=== PATIENT | female | born 1985 | race Two or more races ===

== ENCOUNTER → 2019-07-15 | Outpatient (CLI) | payer MEDICAID ==
--- NOTE | 2019-07-15 11:00 | RADIOLOGY REPORT (SQ) ---
EXAM DESCRIPTION: U/S OB 14+ TRNABD 1GES W/O DOP COMPLETED DATE/TIME: 07/15/2019 10:51 am REASON FOR STUDY: Z34.82 ENCOUNTER FOR SUPRVSN OF NORMAL , SECOND TRIMESTER Z34.82 ENCOUNT ER FOR SUPRVSN OF NORMAL , SECOND TRI COMPARISON: None. TECHNIQUE: Static and Dynamic grayscale imaging performed of gravid uterus using transabdominal appr oach. Additional selected color Doppler and spectral images recorded. All stored on PACS. LIMITATIONS: None. FINDINGS: FETUSES SEEN:1 EGA: 17 week 0 days. Calculated using BPD,FL,HC,AC documented on images. No discrepancy with clinica l dates. BAILEY: 12/23/2019 EFW: Not applicable. PERCENTILE: Not applicable. LVP: 3.5 cm. PLACENTA: Posterior in location. GRADE: I PRESENTATION: Variable. ANATOMY: HEART RATE: 139 beats per minute. FOUR CHAMBER HEART: Visualized. THREE VESSEL CORD: Yes. CORD INSERTION: Visualized. KIDNEYS AND BLADDER: Visualized. Appear normal. STOMACH: Visualized. Appears normal. SPINE: Normal as visualized. BRAIN AND LATERAL VENTRICLES: Visualized. Appear normal. OTHER: No other significant finding. MATERNAL ADNEXA: Ovaries are unremarkable. There is a dominant follicle on the left. CERVICAL LENGTH: 3.8 cm. Closed. OTHER: No other significant finding. IMPRESSION: LIVING INTRAUTERINE . ESTIMATED GESTATIONAL AGE 17 WEEKS 0 DAYS. NO VISUALIZED ANOMALIES. Trimester of : Second trimester - 13 weeks 1 day to 27 weeks 6 days. TECHNICAL DOCUMENTATION: JOB ID: [id number] [employer]- All Rights Reserved Reading location - IP/workstation name: [email or web address]
== END ==
LOC: RAD 10:04
PROVIDERS: ATTEND Midwife
DX: Z34.82 Encounter for supervision of other normal pregnancy, second trimester (principal); Z3A.17 17 weeks gestation of pregnancy
CPT/HCPCS: 76805

== ENCOUNTER → 2019-09-15 | Outpatient (CLI) | payer MEDICAID ==
--- NOTE | 2019-09-15 16:53 | RADIOLOGY REPORT (SQ) ---
EXAM DESCRIPTION: U/S OB 14+ TRNABD 1GES W/O DOP COMPLETED DATE/TIME: 09/15/2019 3:58 pm REASON FOR STUDY: Z34.82 ENCOUNTER FOR SUPRVSN OF NORMAL , SECOND TRIMESTER Z34.82 ENCOUNT ER FOR SUPRVSN OF NORMAL , SECOND TRI COMPARISON: 07/15/2019 TECHNIQUE: Static and Dynamic grayscale imaging performed of gravid uterus using transabdominal appr oach. Additional selected color Doppler and spectral images recorded. All stored on PACS. LIMITATIONS: None. FINDINGS: FETUSES SEEN:1 EGA: 25 weeks 1 day Calculated using BPD,FL,HC,AC documented on images. No discrepancy with clinical dates. BAILEY: 12/28/2019 EFW: 770+/- 114 grams PERCENTILE: 36th DANE: 9.6 cm. PLACENTA: Posterior. GRADE: I PRESENTATION: Cephalic. ANATOMY: HEART RATE: 131 beats per minute. FOUR CHAMBER HEART: Visualized. THREE VESSEL CORD: Yes. CORD INSERTION: Visualized. KIDNEYS AND BLADDER: Visualized. Appear normal. STOMACH: Visualized. Appears normal. SPINE: Normal as visualized. BRAIN AND LATERAL VENTRICLES: Visualized. Appear normal. OTHER: No other significant finding. MATERNAL ADNEXA: Maternal ovaries not visualized. CERVICAL LENGTH: 2.5 cm. Closed. OTHER: No other significant finding. IMPRESSION: LIVING INTRAUTERINE . ESTIMATED GESTATIONAL AGE 25 weeks 1 day. NO VISUALIZED ANOMALIES. Trimester of : Second trimester - 13 weeks 1 day to 27 weeks 6 days. TECHNICAL DOCUMENTATION: JOB ID: [id number] 2010 [employer]- All Rights Reserved Reading location - IP/workstation name: [email or web address]
== END ==
LOC: RAD 14:51
PROVIDERS: ATTEND Midwife
DX: Z34.82 Encounter for supervision of other normal pregnancy, second trimester (principal); Z3A.25 25 weeks gestation of pregnancy
CPT/HCPCS: 76805

== ENCOUNTER 2019-12-29 18:47 | Outpatient (CLI) | payer MEDICAID ==
--- NOTE | 2019-12-29 20:52 | Non Stress Test Report ---
Non Stress Test Datetime Report Generated by CPN: 12/29/2019 20:51 INDICATION Indication for Study (NST) Other: Repeat NST- sent from office VITAL SIGNS Pulse - NST: 68 NBPSYS NST: 114 NBPDIA NST: 62 MONITORING Monitor Explained: Monitor Explained; Test Explained; Patient Verbalized Understanding Time on Monitor: 12/29/2019 18:58 Time off Monitor: 12/29/2019 20:36 NST Duration: 98 NST INTERVENTIONS NST Interventions: PO Hydration; Reposition Patient Physician Notified NST: Dr. Durand BABY A: [id number] BABY A Movement : Present Contraction Frequency : rare FHR Baseline : 125 Accelerations : 15X15 Decelerations : None Variability : Moderate 6-25bpm NST Review: Meets Criteria for Reactive NST NST Review and Verified By : Otf [place] RN NST Results: Reactive NST REPORT Report Trigger: Send Report
== END 2019-12-29 20:54 | disposition home or self-care (01) ==
LOC: LC 18:47
PROVIDERS: ATTEND Obstetrics & Gynecology Gynecology
DX: O48.0 Post-term pregnancy (principal); Z3A.40 40 weeks gestation of pregnancy
CPT/HCPCS: 59025

== ENCOUNTER 2019-12-30 22:58 | Inpatient (IN) | payer MEDICAID ==
[2019-12-30] MEDS ORDERED: RINGERS SOLUTION,LACTATED 1,000 ML IV PRN (23:28)
[2019-12-30] MEDS ORDERED: RINGERS SOLUTION,LACTATED 1,000 ML IV ONE (23:28)
[2019-12-30 23:57] LABS: ABSOLUTE EOSINOPHILS # (AUTO) 0.1 10^3/uL (0.0-0.6); ABSOLUTE LYMPHOCYTES (AUTO) 2.3 10^3/uL (0.5-4.7); ABSOLUTE MONOCYTES (AUTO) 0.6 10^3/uL (0.1-1.4); ABSOLUTE NEUT (AUTO) 5.4 10^3/uL (1.7-8.2); BASOPHILS % (AUTO) 0.3 % (0-2); HEMATOCRIT 31.9 % (36.0-47.0); HEMOGLOBIN 10.3 g/dL (12.0-15.5); LYMPHOCYTES % (AUTO) 27.6 % (13-45); MEAN CORPUSCULAR HGB CONC 32.2 g/dL (32.0-36.0); MEAN CORPUSCULAR VOLUME 81 fl (80-97); MONOCYTES % (AUTO) 6.8 % (3-13); PLATELET COUNT 233 10^3/uL (150-450); RED BLOOD COUNT 3.96 10^6/uL (3.72-5.28); RED CELL DISTRIBUTION WIDTH 19.7 % (11.5-14.0); SEGMENTED NEUTROPHILS % (AUTO) 64.3 % (42-78); TOTAL CELLS COUNTED % (AUTO) 100 %; WHITE BLOOD COUNT 8.4 10^3/uL (4.0-10.5)
[2019-12-31] LABS: APPEARANCE,URINE CLEAR; BILIRUBIN,URINE NEGATIVE (NEGATIVE); COLOR,URINE STRAW; GLUCOSE, URINE NEGATIVE (NEGATIVE); KETONES,URINE NEGATIVE (NEGATIVE); LEUKOCYTE ESTERASE,URINE NEGATIVE (NEGATIVE); NITRITE,URINE NEGATIVE (NEGATIVE); PROTEIN,URINE NEGATIVE (NEGATIVE); URINE SPECIFIC GRAVITY 1.006; UROBILINOGEN,URINE NEGATIVE mg/dL (<2.0)
--- NOTE | 2019-12-31 00:15 | Admission Physical ---
Datetime Report Generated by CPN: 12/31/2019 00:15 CURRENT ADMISSION Chief Complaint: Uterine Contractions Indication for Induction: Not Applicable Admit Impression : Active Labor Admit Plan: Admit to Unit ALLERGIES Medication Allergies: No Medication Allergies: No Known Allergies (12/29/2019) Latex: No Latex Allergies Food Allergies: NKA Environmental Allergies: NKA OBSTETRICAL HISTORY EDC: 12/23/2019 00:00 : 4 Para: 3 Term: 3 : 0 SAB: 0 IAB: 0 Livin Gestational Diabetes: No Rh Sensitization: No Incompetent Cervix: No LIU: No Infertility: No ART Treatment: No Uterine Anomaly: No IUGR: No Hx Previous C/S: No Macrosomia: No Hx Loss/Stillborn: No PIH: No Hx : No Placenta Previa/Abruption: No Depression/PP Depression: No PTL/PROM: No Post Hemorrhage: No Current Procedures: Ultrasound; NST SEE RECORDS Alcohol: No Marijuana : No Cocaine: No Other Illicit Drugs: No Cigarettes: Never Smoker. [id number] MEDICAL HISTORY Diabetes: No Blood Transfusion: No Pulmonary Disease (Asthma, TB): No Breast Disease: No Hypertension: No Business Job Titles Surgery: No Heart Disease: No Hosp/Surgery: Yes Autoimmune Disorder: No Anesthetic Complications: No Kidney Disease: No Abnormal Pap Smear: No Neuro/Epilepsy: No Psychiatric Disorders: No Other Medical Diseases: No Hepatitis/Liver Disease: No Significant Family History: No Varicosities/Phlebitis: No Trauma/Violence : No Thyroid Dysfunction: No Medical History Comments: Hx with hospitalization for childrens deliveries INFECTIOUS HISTORY Gonorrhea: No Genital Herpes: No Chlamydia: No Tuberculosis: No Syphilis: No Hepatitis: No HIV/AIDS Exposure: No Rash or Viral Illness: No HPV: No PHYSICAL EXAM General: Normal HEENT: Normal Neurologic: Normal Thyroid: Normal Heart: Normal Lungs: Normal Breast: Deferred Back: Normal Abdomen: Normal Genitourinary Exam: Normal Extremities: Normal DTRs: Normal Pelvic Type: Adequate Vital Signs: Reviewed VAGINAL EXAM Dilatation: 6 Effacement: 90 Station: -2 MEMBRANES Pooling: Negative Membranes: Intact FETUS A EGA: 41.1 Monitoring: External US FHR- Baseline: 130 Variability: Moderate 6-25bpm Decelerations: None FHR Category: Category I Presentation: Vertex Admit Comment: Anticipate delivery. PLANS FOR LABOR AND DELIVERY Labor and Delivery: None Pain Management: Epidural Feeding Preference: Breast Circumcision: No INFORMED CONSENT Signature: with User ID: [email or web address]
[2019-12-31 00:20] LABS: URINE AMPHETAMINES SCREEN NEGATIVE; URINE BARBITURATES SCREEN NEGATIVE; URINE BENZODIAZEPINES SCREEN NEGATIVE; URINE COCAINE SCREEN NEGATIVE; URINE MARIJUANA (THC) SCREEN NEGATIVE; URINE METHADONE SCREEN NEGATIVE; URINE PHENCYCLIDINE SCREEN NEGATIVE
[2019-12-31] MEDS ORDERED: OXYTOCIN 10 UNIT/ML VIAL ONE (00:22)
[2019-12-31] MEDS ORDERED: MISOPROSTOL 0.2 MG TABLET ONE (00:23)
[2019-12-31] MEDS ORDERED: OXYTOCIN/0.9 % SODIUM CHLORIDE 30 UNIT/500 ML RTUINJ ONE (00:23)
[2019-12-31] MEDS ORDERED: LIDOCAINE 1% INJ-PF (10 MG/ML) 30 ML SDV ONE (00:23)
[2019-12-31] MEDS ORDERED: PROMETHAZINE HCL INJ 25 MG/1 ML VIAL IV PRN (00:24)
[2019-12-31] MEDS ORDERED: PSEUDOEPHEDRINE HCL 30 MG TABLET PO PRN (00:24)
[2019-12-31] MEDS ORDERED: MEASLES,MUMPS&RUBELLA VACC/PF 0.5 ML VIAL SUBCUT PRN (00:24)
[2019-12-31] MEDS ORDERED: NA PHOS,M-B/NA PHOS,DI-BA (ADULT) 133 ML ENEMA PR PRN (00:24)
[2019-12-31] MEDS ORDERED: DIPHENHYDRAMINE HCL 25 MG CAPSULE PO PRN (00:24)
[2019-12-31] MEDS ORDERED: ACETAMINOPHEN 650 MG SUPP.RECT PR PRN (00:24)
[2019-12-31] MEDS ORDERED: DIBUCAINE 1% OINTMENT 28 GM TP PRN (00:24)
[2019-12-31] MEDS ORDERED: DIPH/PERTUSS(ACELL)/TETANUS VAC/PF 0.5 ML SYR (>=10YO) IM PRN (00:24)
[2019-12-31] MEDS ORDERED: BENZOCAINE/MENTHOL AEROSOL SPRAY 56 ML TOP PRN (00:24)
[2019-12-31] MEDS ORDERED: OXYTOCIN/0.9 % SODIUM CHLORIDE 30 UNIT/500 ML RTUINJ IV PRN (00:24)
[2019-12-31] MEDS ORDERED: ACETAMINOPHEN WITH CODEINE #3 TABLET PO PRN ×2 (00:24)
[2019-12-31] MEDS ORDERED: MAGNESIUM HYDROXIDE SUSP 30 ML UDCUP PO PRN (00:24)
[2019-12-31] MEDS ORDERED: GLYCERIN/WITCH HAZEL LEAF 1 EACH MED..WIPE TP PRN (00:24)
[2019-12-31] MEDS ORDERED: PROMETHAZINE HCL 25 MG TABLET PO PRN (00:24)
[2019-12-31] MEDS ORDERED: PROMETHAZINE HCL 25 MG SUPP.RECT PR PRN (00:24)
[2019-12-31] MEDS ORDERED: ZOLPIDEM TARTRATE 5 MG TABLET PO PRN (00:24)
[2019-12-31] MEDS ORDERED: FENTANYL/BUPIVACAINE/NS/PF 300 MCG/150 ML RTUINJ EPI ONE (00:48)
[2019-12-31] MEDS ORDERED: EPHEDRINE SULFATE INJ 50 MG/1 ML AMPULE ONE (00:48)
[2019-12-31] MEDS ORDERED: BUPIVACAINE HCL 0.25 % INJ/PF (2.5 MG/1 ML) 30 ML VIAL ONE (00:49)
--- NOTE | 2019-12-31 05:40 | Delivery Summary ---
Del Sum A-C Datetime Report Generated by CPN: 12/31/2019 05:40 DELIVERY PERSONNEL DELIVERY PERSONNEL: [id number] Delivery Doctor:: Torres Ingram MD Labor and Delivery Nurse:: Carmel Wade RNconservation technician Nurse:: EDUARDA Izquierdo Ncr Operator/QUALITY CONTROL: Alicia Ross, ST MATERNAL INFORMATION Delivery Anesthesia: Epidural Medications After Delivery: Pitocin Bolus-Please Comment Estimated Blood Loss (ml): 250 Delivery QBL: 250 Maternal Complications: None LABOR SUMMARY EDC: 12/23/2019 00:00 No. Babies in Womb: 1 Attempted: No Labor Anesthesia: Epidural LABOR INFORMATION Reason for Induction: Not Applicable Onset of Labor: 12/30/2019 23:25 Complete Dilatation: 12/31/2019 04:12 Oxytocin: N/A Group B Beta Strep: negative Antibiotics # of Doses: 0 Antibiotics Time of Last Dose: 0 Name of Antibiotic Given: 0 Steroids Given: None Reason Steroids Not Administered: Not Applicable MEMBRANES Membranes Rupture Method: Spontaneous Rupture of Membranes: 12/30/2019 06:00 Length of Rupture (hr): 22.75 Amniotic Fluid Color: Clear Amniotic Fluid Amount: Scant Amniotic Fluid Odor: Normal STAGES OF LABOR Stage 1 hr: 4 Stage 1 min: 47 Stage 2 hr: 0 Stage 2 min: 33 Stage 3 hr: 0 Stage 3 min: 4 Total Time in Labor hr: 5 Total Time in Labor min: 24 VAGINAL DELIVERY Laceration #1: Vaginal Laceration Extension #1: Third Degree, IIIa (Less than 50 percent ext anal sphincter thickness torn) Laceration #2: None Laceration Extension #2: N/A Laceration #3: None Laceration Extension #3: N/A Laceration Repair: Yes Laceration Repair Note: Repair of small partial third degree with 3-0 chromic suture. The anterior tear in the capsule of the External anal sphincter was repaired with a figure 8 3-0 chromic suture. The midline vagina was repaired with a running 3-0 chromic suture. The deep tissue of the perineum was repaired with interrupted 3-0 chromic suture. The skin was closed with a 3-0 subcuticular suture. Sponge Count Correct: Vaginal Sweep Performed Sharps Count Correct: Yes CSECTION DELIVERY Primary Indication: N/A Secondary Indication: N/A CSection Incidence: N/A Labor: N/A Elective: N/A CSection Incision: N/A BABY A INFORMATION Delivery Date/Time: 12/31/2019 04:45 Method of Delivery: Vaginal Nurse Controlled Delivery: No Born in Route : No : N/A Forceps: N/A Vacuum Extraction: N/A Shoulder Dystocia : No PRESENTATION/POSITION BABY A Presentation: Cephalic Cephalic Presentation: Vertex Vertex Position: Left Occipital Anterior Breech Presentation: N/A PLACENTA INFORMATION BABY A Placenta Delivery Time : 12/31/2019 04:49 Placenta Method of Delivery: Spontaneous Placenta Status: Delivered SCORES BABY A Heart Rate 1 min: >100 bpm Resp Effort 1 min: Good Cry Reflex Irritability 1 min: Cough or Sneeze or Pulls Away Muscle Tone 1 min: Active Motion Color 1 min: Body [place], Extremities Blue Resuscitation Effort 1 min: Tactile Stimulation SCORE 1 MIN: 9 Heart Rate 5 min: >100 bpm Resp Effort 5 min: Good Cry Reflex Irritability 5 min: Cough or Sneeze or Pulls Away Muscle Tone 5 min: Active Motion Color 5 min: Body [place], Extremities Blue SCORE 5 MIN: 9 INFANT INFORMATION BABY A Gestational Age at Delivery: 41.1 Gestational Status: Late Term- 41- 41.6 Weeks Infant Outcome : Liveborn Infant Condition : Stable Infant Sex: Male IDENTIFICATION BABY A Verification Date/Time: 12/31/2019 05:24 ID Band Number: [id number] Mother's Name Verified: Yes RN Verifying Infant: A. Mauro RN Additional Verifying Personnel: Kim Vasyl RN WEIGHT/LENGTH BABY A Birthweight (gm): 4269 Weight (lb): 9 Infant Weight (oz): 7 Infant Length (in): 21.75 Infant Length (cm): 55.25 CORD INFORMATION BABY A No. Cord Vessels: 3 Nuchal Cord : N/A Cord Blood Taken: Yes-For Eval (Mom's Blood Type - or O+) Infant Suction: None ASSESSMENT BABY A Complications: None Physical Findings at Delivery: Within Normal Limits Respirations: Appears Normal Skin to Skin: Yes Electric Motor And Generator Assembler/ALS Called : No Care By: D Bellavance RN Transferred To: Remains with Mother BABY B INFORMATION : N/A SIGNATURES Signature: with User ID: [email or web address]
[2019-12-31] MEDS ORDERED: IBUPROFEN 800 MG TABLET ONE (06:32)
[2019-12-31] MEDS: IBUPROFEN 800 MG TABLET PO SCH ×3 (06:33→23:18)
[2019-12-31] MEDS: FERROUS SULFATE 325 MG TABLET PO SCH ×2 (10:01→18:01)
[2019-12-31] MEDS: SENNOSIDES/DOCUSATE 8.6-50 MG 1 EACH TABLET PO SCH (10:01)
[2019-12-31] MEDS: FAMOTIDINE 20 MG TABLET PO SCH ×2 (10:01→23:17)
[2019-12-31] MEDS: PRENATAL VITAMIN W DHA CAPSULE PO SCH (10:01)
[2019-12-31] MEDS: DOCUSATE SODIUM 100 MG CAPSULE PO SCH ×2 (10:01→18:01)
--- NOTE | 2019-12-31 11:31 | PDOC PROGRESS REPORT ---
Subjective-OB Progress Note for:: 12/31/19 Subjective: 34yo s/p delivery day. Pt is ambulating and voiding without difficulty denies any concerns, reports pain well controlled with medication Physical Exam (OB) Vital Signs: Temp Pulse Resp BP Pulse Ox 97.6 F 59 L 16 130/77 H 100 12/31/19 08:11 12/31/19 08:11 12/31/19 08:11 12/31/19 08:11 12/31/19 08:11 Intake & Output 12/30/19 12/31/19 01/01/20 06:59 06:59 06:59 Intake Total 400 Balance 400 Weight 80.6 kg - General General Appearance: Appears well In distress: None - PIH/Pre-Eclampsia Headache: Absent Epigastric Pain: No Visual Changes: No - Episiotomy/Laceration Site Condition: Well Approximated, Edematous - Lochia Lochia Amount: Moderate 25-50 ml Lochia Color: Rubra/Red - Abdomen Description: Soft Hernia Present: No Fundal Description: Firm, Midline Fundal Height: 1/u - 2/u - Respiratory Respiratory Status: No respiratory distress - Extremities Upper extremity: Normal inspection Lower extremities: Normal inspection - Neurological Cognition: Normal Orientation: AAOx4 - Psychological Associated symptoms: Normal affect, Normal mood Objective-Diagnostic Laboratory: 12/30/19 23:42 12/30/19 12/30/19 12/30/19 23:08 23:42 23:42 WBC 8.4 RBC 3.96 Hgb 10.3 L Hct 31.9 L MCV 81 MCH 26.0 L MCHC 32.2 RDW 19.7 H Plt Count 233 Seg Neutrophils % 64.3 Urine Color STRAW Urine Appearance CLEAR Urine pH 6.0 Ur Specific [place] 1.006 Urine Protein NEGATIVE Urine Glucose (UA) NEGATIVE Urine Ketones NEGATIVE Urine Blood MODERATE H Urine Nitrite NEGATIVE Ur Leukocyte Esterase NEGATIVE Blood Type O POSITIVE Antibody Screen NEGATIVE Assessment and Plan(PN) - Assessment and Plan (1) Vaginal delivery Is this a current diagnosis for this admission?: Yes Plan: routine pp care (2) Third degree laceration of perineum, type 3a Is this a current diagnosis for this admission?: Yes Plan: continue to monitor for s/s of infection (3) Anemia affecting third Is this a current diagnosis for this admission?: Yes Plan: increase dietary iron and FeSO4 BID - Time Spent with Patient Time with patient: Less than 15 minutes Medications reviewed and adjusted accordingly: Yes - Disposition Anticipated Discharge: Home Within: within 48 hours
[2020-01-01] MEDS: IBUPROFEN 800 MG TABLET PO SCH ×3 (05:51→23:21)
[2020-01-01 08:10] LABS: HEMATOCRIT 29.7 % (36.0-47.0); HEMOGLOBIN 9.8 g/dL (12.0-15.5); MEAN CORPUSCULAR HEMOGLOBIN 26.5 pg (27.0-33.4); MEAN CORPUSCULAR HGB CONC 32.9 g/dL (32.0-36.0); MEAN CORPUSCULAR VOLUME 81 fl (80-97); PLATELET COUNT 200 10^3/uL (150-450); RED BLOOD COUNT 3.69 10^6/uL (3.72-5.28); RED CELL DISTRIBUTION WIDTH 20.6 % (11.5-14.0); WHITE BLOOD COUNT 8.1 10^3/uL (4.0-10.5)
[2020-01-01] MEDS: FAMOTIDINE 20 MG TABLET PO SCH ×2 (11:55→23:22)
[2020-01-01] MEDS: PRENATAL VITAMIN W DHA CAPSULE PO SCH (11:55)
[2020-01-01] MEDS: SENNOSIDES/DOCUSATE 8.6-50 MG 1 EACH TABLET PO SCH (11:55)
[2020-01-01] MEDS: FERROUS SULFATE 325 MG TABLET PO SCH ×2 (11:55→17:34)
[2020-01-01] MEDS: DOCUSATE SODIUM 100 MG CAPSULE PO SCH ×2 (11:56→17:34)
--- NOTE | 2020-01-01 14:16 | PDOC PROGRESS REPORT ---
Subjective-OB Progress Note for:: 01/01/20 - PP Day #1, doing well, UOB voiding, O+ , Rubella Immune, breast and bottlefeeding Physical Exam (OB) Vital Signs: Temp Pulse Resp BP Pulse Ox 98.0 F 58 L 16 109/55 L 99 01/01/20 08:00 01/01/20 08:00 01/01/20 08:00 01/01/20 08:00 01/01/20 08:00 Intake & Output 12/31/19 01/01/20 01/02/20 06:59 06:59 06:59 Intake Total 250 780 600 Output Total 200 Balance 50 780 600 Weight 80.6 kg - General General Appearance: Appears well, Alert - PIH/Pre-Eclampsia Clonus: Negative Headache: Absent Epigastric Pain: No Visual Changes: No - Lochia Lochia Amount: Scant < 10 ml Lochia Color: Rubra/Red - Abdomen Description: Soft Hernia Present: No Fundal Description: Firm, Midline Fundal Height: u/u - u/2 - Respiratory Respiratory Status: No respiratory distress - Genitourinary Genitourinary Note: voiding - Extremities Upper extremity: Normal inspection Lower extremities: Normal inspection - Neurological Cognition: Normal Orientation: AAOx4 - Psychological Associated symptoms: Normal affect, Normal mood Objective-Diagnostic Laboratory: 01/01/20 07:48 12/30/19 01/01/20 23:42 07:48 WBC 8.1 RBC 3.69 L Hgb 9.8 L Hct 29.7 L MCV 81 MCH 26.5 L MCHC 32.9 RDW 20.6 H Plt Count 200 Antibody Screen NEGATIVE Assessment and Plan(PN) - Assessment and Plan (1) Anemia affecting third Is this a current diagnosis for this admission?: Yes (2) Third degree laceration of perineum, type 3a Is this a current diagnosis for this admission?: Yes (3) Vaginal delivery Is this a current diagnosis for this admission?: Yes Plan:: Routine PP orders, ambulation encouraged - Time Spent with Patient Time with patient: Less than 15 minutes Medications reviewed and adjusted accordingly: Yes - Disposition Anticipated Discharge: Home Within: within 24 hours
[2020-01-02] MEDS: IBUPROFEN 800 MG TABLET PO SCH ×2 (06:10→13:29)
[2020-01-02] MEDS: PRENATAL VITAMIN W DHA CAPSULE PO SCH (09:40)
[2020-01-02] MEDS: FAMOTIDINE 20 MG TABLET PO SCH (09:40)
[2020-01-02] MEDS: SENNOSIDES/DOCUSATE 8.6-50 MG 1 EACH TABLET PO SCH (09:40)
[2020-01-02] MEDS: FERROUS SULFATE 325 MG TABLET PO SCH (09:40)
[2020-01-02] MEDS: DOCUSATE SODIUM 100 MG CAPSULE PO SCH (09:40)
--- NOTE | 2020-01-02 09:58 | PDOC PROGRESS REPORT ---
Subjective-OB Progress Note for:: 01/02/20 Subjective: Doing well, no c/o, breast and bottle feeding, voiding, ambulating Physical Exam (OB) Vital Signs: Temp Pulse Resp BP Pulse Ox 97.9 F 70 18 115/72 96 01/02/20 07:34 01/02/20 07:34 01/02/20 07:34 01/02/20 07:34 01/02/20 07:34 Intake & Output 01/01/20 01/02/20 01/03/20 06:59 06:59 06:59 Intake Total 780 1400 Balance 780 1400 - PIH/Pre-Eclampsia Clonus: Negative Headache: Absent Epigastric Pain: No Visual Changes: No - Lochia Lochia Amount: Scant < 10 ml Lochia Color: Rubra/Red - Abdomen Description: Soft Hernia Present: No Fundal Description: Firm, Midline Fundal Height: u/u - u/2 Objective-Diagnostic Laboratory: 01/01/20 07:48 Assessment and Plan(PN) - Assessment and Plan (1) Vaginal delivery Is this a current diagnosis for this admission?: Yes (2) Third degree laceration of perineum, type 3a Is this a current diagnosis for this admission?: Yes (3) Anemia affecting third Is this a current diagnosis for this admission?: Yes - Time Spent with Patient Time with patient: Less than 15 minutes Medications reviewed and adjusted accordingly: Yes - Disposition Anticipated Discharge: Home Within: within 24 hours
--- NOTE | 2020-01-02 10:03 | PDOC DISCHARGE SUMMARY ---
Impression - Admit/DC Date/PCP Admission Date/Primary Care Provider: 12/30/19 23:42 JEFFERY RIVAS CNM Discharge Date: 01/02/20 - Discharge Diagnosis (1) Vaginal delivery Is this a current diagnosis for this admission?: Yes (2) Third degree laceration of perineum, type 3a Is this a current diagnosis for this admission?: Yes (3) Anemia affecting third Is this a current diagnosis for this admission?: Yes - Additional Information Resuscitation Status: Full Code Discharge Diet: As Tolerated, Regular Discharge Activity: Pelvic Rest Referrals: JEFFERY RIVAS CNM [Primary Care Provider] - ([facility] 4 weeks) Home Medications: Prenat 115/Iron Fum/Folic/Dss [ 19 Tablet] 1 each PO DAILY 12/31/19 HPI Gestational Age: 41.1 Reason(s) for Admission: Onset of Labor Procedures: NST, Ultrasound Intrapartum Procedure(s): Spontaneous Vaginal Delivery Complication(s): Laceration-Vaginal - boy, wt 9-7 Laceration-Degree: 3rd Hospital Course Hospital Course: routine Results Laboratory Results: WBC 8.1 10^3/uL (4.0-10.5) 01/01/20 07:48 RBC 3.69 10^6/uL (3.72-5.28) L 01/01/20 07:48 Hgb 9.8 g/dL (12.0-15.5) L 01/01/20 07:48 Hct 29.7 % (36.0-47.0) L 01/01/20 07:48 MCV 81 fl (80-97) 01/01/20 07:48 MCH 26.5 pg (27.0-33.4) L 01/01/20 07:48 MCHC 32.9 g/dL (32.0-36.0) 01/01/20 07:48 RDW 20.6 % (11.5-14.0) H 01/01/20 07:48 Plt Count 200 10^3/uL (150-450) 01/01/20 07:48 Lymph % (Auto) 27.6 % (13-45) 12/30/19 23:42 [place] % (Auto) 6.8 % (3-13) 12/30/19 23:42 Eos % (Auto) 1.0 % (0-6) 12/30/19 23:42 Baso % (Auto) 0.3 % (0-2) 12/30/19 23:42 Absolute Neuts (auto) 5.4 10^3/uL (1.7-8.2) 12/30/19 23:42 Absolute Lymphs (auto) 2.3 10^3/uL (0.5-4.7) 12/30/19 23:42 Absolute Monos (auto) 0.6 10^3/uL (0.1-1.4) 12/30/19 23:42 Absolute Eos (auto) 0.1 10^3/uL (0.0-0.6) 12/30/19 23:42 Absolute Basos (auto) 0.0 10^3/uL (0.0-0.2) 12/30/19 23:42 Seg Neutrophils % 64.3 % (42-78) 12/30/19 23:42 Urine Color STRAW 12/30/19 23:08 Urine Appearance CLEAR 12/30/19 23:08 Urine pH 6.0 (5.0-9.0) 12/30/19 23:08 Ur Specific [place] 1.006 12/30/19 23:08 Urine Protein NEGATIVE mg/dL (NEGATIVE) 12/30/19 23:08 Urine Glucose (UA) NEGATIVE mg/dL (NEGATIVE) 12/30/19 23:08 Urine Ketones NEGATIVE mg/dL (NEGATIVE) 12/30/19 23:08 Urine Blood MODERATE (NEGATIVE) H 12/30/19 23:08 Urine Nitrite NEGATIVE (NEGATIVE) 12/30/19 23:08 Urine Bilirubin NEGATIVE (NEGATIVE) 12/30/19 23:08 Urine Urobilinogen NEGATIVE mg/dL (<2.0) 12/30/19 23:08 Ur Leukocyte Esterase NEGATIVE (NEGATIVE) 12/30/19 23:08 Urine Ascorbic Acid NEGATIVE (NEGATIVE) 12/30/19 23:08 Membranes Rupture POSITIVE (NEGATIVE) H 12/30/19 23:19 Urine Opiates Screen NEGATIVE 12/30/19 23:08 Urine Methadone Screen NEGATIVE 12/30/19 23:08 Ur Barbiturates Screen NEGATIVE 12/30/19 23:08 Ur Phencyclidine Scrn NEGATIVE 12/30/19 23:08 Ur Amphetamines Screen NEGATIVE 12/30/19 23:08 U Benzodiazepines Scrn NEGATIVE 12/30/19 23:08 Urine Cocaine Screen NEGATIVE 12/30/19 23:08 U Marijuana (THC) Screen NEGATIVE 12/30/19 23:08 RPR NONREACTIVE (NONREACTIVE) 12/30/19 23:42 Blood Type O POSITIVE 12/30/19 23:42 Antibody Screen NEGATIVE 12/30/19 23:42 Plan Health Concerns: 3rd degree lac Plan of Treatment: stool softners, no enemas Goals: no complications Time Spent: Less than 30 Minutes
[2020-01-02 10:07] VITALS: BP 109/55
== END 2020-01-02 14:53 | disposition home or self-care (01) | DRG 768 ==
LOC: LC 22:58 → LR 23:42 → 2S 12-31 07:58
PROVIDERS: ADMIT Obstetrics & Gynecology; ATTEND Obstetrics & Gynecology
PROC: 10E0XZZ Delivery of Products of Conception, External Approach (ICD-10-PCS; principal; 2019-12-30)
PROC: 0DQR0ZZ Repair Anal Sphincter, Open Approach (ICD-10-PCS; 2019-12-30)
DX: O99.02 Anemia complicating childbirth (principal); Z37.0 Single live birth; O70.23 Third degree perineal laceration during delivery, IIIc; O48.0 Post-term pregnancy; D64.9 Anemia, unspecified; Z3A.41 41 weeks gestation of pregnancy
CPT/HCPCS: 1967; 36415; 80307; 81005; 84112; 85025; 85027; 86592; 86850; 86900; 86901; 94760; J2590; J3010; J3490

== ENCOUNTER 2020-03-18 05:54 | Day surgery (SDC) | payer MEDICAID ==
[~2020-03-18 05:54] MED LIST: LACTATED RINGERS 1000 ML IV PRN; LIDOCAINE 0.5% INJ-PF (5 MG/ML) 50 ML SDV SUBCUT PRN
[2020-03-18 06:05] LABS: HEMATOCRIT 35.6 % (36.0-47.0); MEAN CORPUSCULAR HGB CONC 33.6 g/dL (32.0-36.0); MEAN CORPUSCULAR VOLUME 86 fl (80-97); PLATELET COUNT 243 10^3/uL (150-450); RED BLOOD COUNT 4.13 10^6/uL (3.72-5.28); RED CELL DISTRIBUTION WIDTH 17.1 % (11.5-14.0); WHITE BLOOD COUNT 5.9 10^3/uL (4.0-10.5)
[2020-03-18 06:11] LABS: APPEARANCE,URINE CLOUDY; BILIRUBIN,URINE NEGATIVE (NEGATIVE); COLOR,URINE YELLOW; GLUCOSE, URINE NEGATIVE (NEGATIVE); KETONES,URINE NEGATIVE (NEGATIVE); LEUKOCYTE ESTERASE,URINE LARGE (NEGATIVE); NITRITE,URINE NEGATIVE (NEGATIVE); PROTEIN,URINE NEGATIVE (NEGATIVE); URINE SPECIFIC GRAVITY 1.023; UROBILINOGEN,URINE NEGATIVE mg/dL (<2.0)
[2020-03-18 06:12] LABS: ADD MANUAL MICROSCOPIC YES
[2020-03-18 06:19] LABS: BACTERIA,URINE 2+ /HPF; RBC,URINE RARE /HPF
[2020-03-18] MEDS ORDERED: PROMETHAZINE HCL INJ 25 MG/1 ML VIAL ONE (07:06)
[2020-03-18] MEDS ORDERED: MIDAZOLAM 2 MG/2 ML INJ ONE (07:06)
[2020-03-18] MEDS ORDERED: PROPOFOL INJ 200 MG/20 ML VIAL IV ONE (07:06)
[2020-03-18] MEDS ORDERED: DEXAMETHASONE SOD PHOSPHATE INJ 4 MG/1 ML VIAL ONE (07:06)
[2020-03-18] MEDS ORDERED: ONDANSETRON HCL INJ/PF 4 MG/2 ML SDV ONE (07:06)
[2020-03-18] MEDS ORDERED: FENTANYL CITRATE INJ/PF 100 MCG/2 ML AMPUL ONE (07:06)
[2020-03-18] MEDS ORDERED: LIDOCAINE 2% INJ (20 MG/ML) 20 ML MDV ONE (07:07)
[2020-03-18] MEDS ORDERED: DIPHENHYDRAMINE HCL 50 MG/ML VIAL IV PRN (07:43)
[2020-03-18] MEDS ORDERED: FENTANYL CITRATE INJ/PF 100 MCG/2 ML AMPUL IV PRN ×3 (07:43)
[2020-03-18] MEDS ORDERED: MEPERIDINE HCL/PF INJ 25 MG/1 ML DISP.SYRIN IV PRN (07:43)
[2020-03-18] MEDS ORDERED: MORPHINE SULFATE 10 MG/ML INJ IV PRN (07:43)
[2020-03-18] MEDS ORDERED: PROMETHAZINE HCL INJ 25 MG/1 ML VIAL IV PRN (07:43)
[2020-03-18] MEDS ORDERED: RINGERS SOLUTION,LACTATED 1,000 ML IV PRN (08:17)
[2020-03-18] MEDS ORDERED: OXYCODONE-ACETAMINOPHEN 5-325 MG TABLET PO PRN ×2 (08:17)
[2020-03-18] MEDS ORDERED: KETOROLAC TROMETHAMINE INJ/PF 30 MG/1 ML SDV IV PRN (08:17)
[2020-03-18] MEDS ORDERED: IBUPROFEN 800 MG TABLET PO PRN (08:17)
--- NOTE | 2020-03-18 08:22 | Operative Report ---
Operative Report DATE OF SURGERY: 03/18/20 PREOPERATIVE DIAGNOSIS: Patient desires tubal ligation with laparoscopic tubal cautery POSTOPERATIVE DIAGNOSIS: Same OPERATION: Laparoscopy, bilateral tubal cautery SURGEON: ESTRELLA RIVAS ANESTHESIA: GA TISSUE REMOVED OR ALTERED: Fallopian tubes COMPLICATIONS: None ESTIMATED BLOOD LOSS: 5 cc INTRAOPERATIVE FINDINGS: Normal uterus tubes and ovaries PROCEDURE: Patient was taken the OR and placed in supine position. General anesthesia was induced. She is placed in dorsolithotomy position using Saurav stirrups. Her abdomen perineum and vagina were prepared and draped in a sterile fashion. She had just voided and did not need catheterization. A sponge stick was placed in the vagina for manipulation of the uterus. An incision was made the umbilicus natural umbilical defect was identified and dilated with Julianna clamp which allowed a blunt port to be placed. Laparoscopy confirmed appropriate placement. The abdomen was insufflated with CO2 gas. The fallopian tubes were inspected and followed out to their fimbriated ends for anatomic identification. They were then cauterized at the mid isthmic portion moving back toward the uterine cornu with 5 successive bites. This was completed bilaterally. Photos were taken. At this point the case was completed the gas was allowed to escape from the abdomen. The port and scope were removed at the same time. The fascia at the umbilicus was closed with a 2-0 Vicryl stitch and skin closed with a 4-0 undyed Vicryl stitch. The sponge stick was removed from the vagina. The patient was extubated in the OR and taken recovery room stable condition.
--- NOTE | 2020-03-18 08:26 | Discharge Summary ---
Discharge Summary (SDC) - Discharge Final Diagnosis: Encounter for tubal ligation Date of Surgery: 03/18/20 Discharge Date: 03/18/20 Condition: Good Prescriptions: Oxycodone HCl/Acetaminophen [Percocet 5-325 mg Tablet] 1 tab PO Q4HP PRN #20 tablet PRN Reason: Ibuprofen [Motrin 800 mg Tablet] 800 mg PO Q8H PRN #30 tablet PRN Reason: Referrals: MIHAI COBURN PA-C [Primary Care Provider] - Discharge Diet: Regular Discharge Activity: Balance Activity w/Rest, Slowly Increase Activity Report the Following to Your Physician Immediately: Nausea, Increase in Pain, Fever over 101 Degrees
[2020-03-18] MEDS ORDERED: GLYCOPYRROLATE 1 MG/5 ML VIAL ONE (09:35)
[2020-03-18] MEDS ORDERED: ROCURONIUM BROMIDE INJ 50 MG/5 ML VIAL IV ONE (09:35)
[2020-03-18] MEDS ORDERED: SUCCINYLCHOLINE CHLORIDE INJ 200 MG/10 ML VIAL ONE (09:35)
[2020-03-18] MEDS ORDERED: KETOROLAC TROMETHAMINE 60 MG/2 ML SDV ONE (09:35)
[2020-03-18] MEDS ORDERED: NEOSTIGMINE METHYLSULFATE 10 MG/10 ML VIAL ONE (09:35)
[2020-03-18 11:27] VITALS: BP 112/65
== END 2020-03-18 10:10 | disposition home or self-care (01) ==
LOC: OROUT 05:54
PROVIDERS: ATTEND Obstetrics & Gynecology
DX: Z30.2 Encounter for sterilization (principal); Z03.818 Encounter for observation for suspected exposure to other biological agents ruled out
CPT/HCPCS: 36415; 85027; 87635; 81025; 81001; 58670; J2250; J3490 ×3; J1100; J1885; J3010; J2710; J2550; J0330; J2405; J2704; C9803